=== PATIENT | female | born 1980 | race Caucasian/White ===

== ENCOUNTER 2017-02-23 19:48 | Emergency (ER) | payer MEDICAID ==
[~2017-02-23] VITALS: Ht 162.6 cm; Wt 84.5 kg
[2017-02-23 19:58] VITALS: Ht 162.6 cm; Wt 84.5 kg
[2017-02-23] MEDS ORDERED: HYDROCODONE/APAP (5/325) TAB PO STA (23:44)
[2017-02-23 23:57] LABS: URINE BLOOD (Dip) POC Trace-intact (NEGATIVE)
--- NOTE | 2017-02-24 00:28 | RADRPT ---
PROCEDURE: US Non-OB Pelvis. CLINICAL INDICATION: Left pelvic pain. TECHNIQUE: Multiple sonographic images of the pelvis were obtained utilizing a transabdominal tech nique. The images were reviewed on a PACS workstation. COMPARISON: None. FINDINGS: The uterus is visualized and measures 8.5 x 4.4 x 4.9 cm. The endometrial echo complex is normal and measures 5 mm. The right ovary measures 3.2 x 1.9 x 2.0 cm. The left ovary measures 3.3 x 2.1 x 2.4 cm. Blood flow is demonstrated to both ovaries. No adnexal masses are noted. There is no evidence of free fluid. IMPRESSION: 1. Unremarkable pelvic ultrasound. RPTAT: HTAR .Ronald Cruz MD, Date Time Electronically viewed and signed by .Ronald Cruz MD, on 02/24/2017 00:28 .R/
[2017-02-24 00:35] LABS: ADD UMIC YES; URINE BILIRUBIN (Dip) NEGATIVE (NEGATIVE); URINE BLOOD (Dip) TRACE (NEGATIVE); URINE COLOR LT. YELLOW (YELLOW); URINE GLUCOSE (Dip) NEGATIVE (NEGATIVE); URINE KETONES (Dip) NEGATIVE (NEGATIVE); URINE LEUKOCYTE ESTERASE (Dip) TRACE (NEGATIVE); URINE NITRITE (Dip) NEGATIVE (NEGATIVE); URINE TOTAL PROTEIN (Dip) NEGATIVE (NEGATIVE); URINE UROBILINOGEN (Dip) 0.2 E.U./dL (0.1-1.0)
[2017-02-24 00:51] LABS: BACTERIA,URINE RARE; SQUAMOUS EPITHELIAL CELL,UR FEW; URINE RBCS 0-2 /HPF (0)
--- NOTE | 2017-02-24 01:03 | ERD ---
ER Documentation Chief Complaint Date/Time DATE: 02/24/17 TIME: 01:01 Chief Complaint left pelvic pain, N/V, diarrhea HPI This pleasant 36-year-old female presents to emergency department today with left pelvic pain with nausea, vomiting, and diarrhea that started 3 days ago. Patient states vomiting and diarrhea has subsided. Continues to have left pelvic pain. Patient denies possibility of contaminated food. Reports irregular menstruation, last menstrual period 2 months ago. Patient denies dysuria, or hematuria. Patient denies any injury, denies any new exercise routine or activity. ROS All systems reviewed and are negative except as per history of present illness. Allergies Allergies: Coded Allergies: No Known Allergy (Verified Allergy, Unknown, 12/15/06) PMhx/Soc History of Surgery: No Anesthesia Reaction: No Hx Neurological Disorder: No Hx Respiratory Disorders: No Hx Cardiac Disorders: No Hx Psychiatric Problems: No Hx Miscellaneous Medical Probl: No Hx Alcohol Use: No Hx Substance Use: No Hx Tobacco Use: No Physical Exam Vitals Vital Signs Date Time Temp Pulse Resp B/P Pulse Ox O2 Delivery O2 Flow Rate FiO2 02/23/17 19:58 98.5 83 20 127/66 100 Vitals stable, nursing notes reviewed Physical Exam Const: No acute distress Head: Atraumatic Eyes: Normal Conjunctiva ENT: Normal External Ears, Nose and Mouth. Neck: Resp: Cardio: Regular rate and rhythm, no murmurs Abd: Obese abdomen, soft, negative Naranjo sign, negative epigastric pain, McBurney's point negative for tenderness. Patient is hypersensitive to touch on left pelvis/groin Skin: No petechiae or rashes Back: No midline or flank tenderness Ext: Neur: Awake and alert Psych: Normal Mood and Affect Results 24 hrs Laboratory Tests Test 02/23/17 23:54 02/23/17 23:58 Urine Color LT. YELLOW Urine Clarity CLEAR Urine pH 5.5 Urine Specific [place] 1.025 Urine Ketones NEGATIVE Urine Nitrite NEGATIVE Urine Bilirubin NEGATIVE Urine Urobilinogen 0.2 E.U./dL Urine Leukocyte Esterase TRACE Urine Microscopic RBC 0-2/HPF Urine Microscopic WBC 0-2/HPF Urine Squamous Epithelial Cells FEW Urine Bacteria RARE Urine Hemoglobin TRACE Urine Glucose NEGATIVE% Urine Total Protein NEGATIVE Bedside Urine pH (LAB) 5.5 Bedside Urine Protein (LAB) Negative Bedside Urine Glucose (UA) Negative Bedside Urine Ketones (LAB) Negative Bedside Urine Blood Trace-intact Bedside Urine Nitrite (LAB) Negative Bedside Urine Leukocyte Esterase (L Negative Current Medications Medications (Trade) Dose Ordered Sig/Emilie Route PRN Reason Start Time Stop Time Status Last Admin Dose Admin Acetaminophen/ Hydrocodone Bitart ([place] (5/325)) 1 tab ONCE STAT PO 02/23/17 23:44 02/23/17 23:47 DC 02/24/17 00:08 Procedures/MDM PROCEDURE: US Non-OB Pelvis. CLINICAL INDICATION: Left pelvic pain. TECHNIQUE: Multiple sonographic images of the pelvis were obtained utilizing a transabdominal technique. The images were reviewed on a PACS workstation. COMPARISON: None. FINDINGS: The uterus is visualized and measures 8.5 x 4.4 x 4.9 cm. The endometrial echo complex is normal and measures 5 mm. The right ovary measures 3.2 x 1.9 x 2.0 cm. The left ovary measures 3.3 x 2.1 x 2.4 cm. Blood flow is demonstrated to both ovaries. No adnexal masses are noted. There is no evidence of free fluid. IMPRESSION: 1. Unremarkable pelvic ultrasound. .Ronald Cruz MD, MD Date Time Electronically viewed and signed by .Ronald Cruz MD, MD on 02/24/2017 00:28 This pleasant 36-year-old female presents to emergency department today with left pelvic pain, nausea, vomiting, diarrhea. Nausea, vomiting diarrhea has subsided. Pelvic pain continues. Differential diagnosis includes but not limited to ectopic , urinary tract infection, strained abdominal muscle , hernia, gastritis, gastroenteritis. Patient treated for pain with [place]. Urinalysis negative for evidence of infection, U hCG negative for evidence of , ultrasound findings uterus is visualized measures 8.54.44.9 cm, the endometrial echo complex is normal and measures 5 mm. Right ovary measures 3.2 x 1.9 x 2.0 cm left ovary measures 3.3 x 2.1 x 2.4 cm blood flow is demonstrated to both ovaries no adnexal masses are noted there is no evidence of free fluid. Unremarkable pelvic ultrasound documented. Nurse practitioner discussed findings with patient and treatment plan. Patient will be discharged home with diagnosis of a pulled abdominal muscle secondary to gastritis. Treated with ibuprofen and Valium. Strict return to emergency department precautions return for fever, worsening of symptoms, nausea vomiting, or pain not responding to treatment. I feel patient can be monitored by primary care physician in outpatient setting. Increase fluids, increase rest, take medications as prescribed. I feel the patient is stable for discharge at this time. I have discussed results, examination findings, the treatment plan with the patient and family present prior to discharge. Indications for emergent reevaluation, side effects of medication were also discussed. All questions were answered. Patient verbalizes understanding and agrees with plan of care. Departure Diagnosis: Primary Impression: Abdominal muscle strain Encounter type: initial encounter Qualified Code: S39.011A - Abdominal muscle strain, initial encounter Additional Impression: Gastritis Gastritis type: unspecified gastritis Chronicity: acute Gastritis bleeding : without bleeding Qualified Code: K29.00 - Acute gastritis without hemorrhage, unspecified gastritis type Condition: Good Patient Instructions: Gastritis (Adult), Muscle Strain, Abdomen Referrals: [facility] Additional Instructions: Thank you for for coming to [facility] for your care today. Please ask your nurse or provider if you have questions about your care today and do not leave until all your questions have been answered. Please use any medications given as directed and follow-up with your doctor (or the doctor you were referred to) in the next 2-3 days. If you do not have a primary care doctor you may follow up at the [facility] [place] (listed below). You may also use motrin and tylenol as needed for fever and/or pain unless instructed otherwise by your provider or nurse. Indications for more urgent follow-up have been discussed, but you may return to the Emergency Department at ANY time for any worrisome or worsening symptoms. If you have abdominal pain, please know that no test or exam you received is perfect and you should follow up within 8 hours for continued pain. If you had any imaging studies today, such as an X-Ray or CT Scan, these studies will be reviewed later by a radiologist. You will be called if there are important findings that were not identified today, so make sure the contact information you provided at registration is correct. If you received any narcotic pain control medicine today, such as Vicodin, Morphine or Dilaudid, your coordination and judgment may be affected for a number of hours. Please do not drive or operate heavy machinery, and you may want someone to assist you at home. If you were given a prescription for narcotic medication, be aware that it is very addictive- use sparingly and only if necessary. HENNA LOPEZ Feb 24, 2017 01:03
[2017-02-24] MEDS ORDERED: DIAZ-90 PO (01:51)
[2017-02-24] MEDS ORDERED: IBUP-1542 PO (01:51)
[2017-02-24 02:05] VITALS: BP 99/59; PULSE 74; RESP 18; TEMP 97.5
== END 2017-02-24 02:05 | disposition home or self-care (01) ==
LOC: FTE 19:48
DX: S39.011A Strain of muscle, fascia and tendon of abdomen, initial encounter (principal); K29.00 Acute gastritis without bleeding; R10.2 Pelvic and perineal pain; X58.XXXA Exposure to other specified factors, initial encounter; Y92.9 Unspecified place or not applicable
CPT/HCPCS: 76856; 81001; Z7610; 81003

== ENCOUNTER 2018-05-26 21:41 | Emergency (ER) | END 2018-05-26 23:44 | disposition home or self-care (01) ==

== ENCOUNTER 2018-09-17 22:21 | Emergency (ER) | END 2018-09-18 02:54 | disposition home or self-care (01) ==

== ENCOUNTER 2019-01-30 23:45 | Emergency (ER) | payer MEDICAID ==
[~2019-01-30] VITALS: Ht 149.9 cm; Wt 83.4 kg
[~2019-01-30 23:45] MED LIST: AMOX1TAB10 PO; DIAZ5TAB PO; GUAI5SYR2 PO; IBUP-1542 PO; ONDA4TAB14 PO
[2019-01-30 23:50] VITALS: BP 113/57; PULSE 76; Ht 149.9 cm; Wt 83.4 kg
--- NOTE | 2019-01-31 03:20 | ERD ---
ER Documentation Chief Complaint Chief Complaint L PELVIC PAIN X'S 2 WEEKS HPI 38-year-old female, previously healthy, presents to the emergency department, complaining of 2 weeks with intermittent episodes of left lower pelvic pain. The patient denies dysuria, no vaginal discharge, no fever, no chills. ROS All systems reviewed and are negative except as per history of present illness. Medications Home Meds Active Scripts Ondansetron (Ondansetron Odt) 4 Mg Tab.rapdis, 4 MG PO Q6H PRN for NAUSEA AND/OR VOMITING, #20 TAB Prov:MARV FUENTES MD 09/18/18 Ibuprofen* (Motrin*) 600 Mg Tab, 600 MG PO Q6, #30 TAB Prov:JOHN,HENNA 05/26/18 Guaifenesin-Dextromethorphan* (Robitussin* DM) 100MG/10MG/5ML Syrup, 10 ML PO Q4 H PRN for COUGH for 3 Days, #100 ML Prov:JOHN,HNENA 05/26/18 Amoxicillin/Potassium Clav (Amox-Clav 875-125 mg Tablet) 875-125 mg Tab, 1 TAB PO BID for 10 Days, #20 TAB Prov:JOHN,HENNA 05/26/18 Diazepam* (Valium*) 5 Mg Tablet, 5 MG PO Q8, #10 TAB Prov:JOHN,HENNA 02/24/17 Ibuprofen* (Motrin*) 600 Mg Tab, 600 MG PO Q6, #30 TAB Prov:JOHN,HENNA 02/24/17 Allergies Allergies: Coded Allergies: No Known Allergy (Verified Allergy, Unknown, 12/15/06) PMhx/Soc Medical and Surgical Hx: pt denies Medical Hx, pt denies Surgical Hx History of Surgery: No Anesthesia Reaction: No Hx Neurological Disorder: No Hx Respiratory Disorders: No Hx Cardiac Disorders: No Hx Psychiatric Problems: No Hx Miscellaneous Medical Probl: No Hx Alcohol Use: Yes Hx Substance Use: No Hx Tobacco Use: No Smoking Status: Never smoker Physical Exam Vitals Vital Signs Date Temp Pulse Resp B/P (MAP) Pulse Ox O2 O2 Flow FiO2 Time Delivery Rate 01/30/19 97.7 76 18 113/57 98 23:50 (75) Physical Exam Const: No acute distress Head: Atraumatic Eyes: Normal Conjunctiva ENT: Normal External Ears, Nose and Mouth. Neck: Full range of motion. No meningismus. Resp: Clear to auscultation bilaterally Cardio: Regular rate and rhythm, no murmurs Abd: Soft, non tender, non distended. Normal bowel sounds Skin: No petechiae or rashes Back: No midline or flank tenderness Ext: No cyanosis, or edema Neur: Awake and alert Psych: Normal Mood and Affect Results 24 hrs Laboratory Tests Test 01/31/19 03:30 Urine Color YELLOW Urine Clarity SLIGHTLY CLOUDY Urine pH 5.0 Urine Specific [place] 1.019 Urine Ketones NEGATIVE mg/dL Urine Nitrite NEGATIVE mg/dL Urine Bilirubin NEGATIVE mg/dL Urine Urobilinogen NEGATIVE mg/dL Urine Leukocyte Esterase 3+ Berta/ul Urine Microscopic RBC 5 /HPF Urine Microscopic WBC 5 /HPF Urine Squamous Epithelial Cells FEW /HPF Urine Bacteria FEW /HPF Urine Hemoglobin NEGATIVE mg/dL Urine Glucose NEGATIVE mg/dL Urine Total Protein NEGATIVE mg/dl Urine Test NEGATIVE Departure Diagnosis: Primary Impression: UTI (urinary tract infection) Condition: Stable Additional Instructions: Thank you very much for allowing us to participate in your care. Your health and safety is our top priority at [facility]. Call your primary care doctor TOMORROW for an appointment during the next 2-4 days and bring all the information and medications prescribed. Have prescriptions filled and follow precisely the directions on the label. If the symptoms get worse and your provider is unavailable, return to the Emergency Department immediately. MARINA LYON MD Jan 31, 2019 03:20
[2019-01-31] MEDS ORDERED: CIPROFLOXACIN 500 MG TAB PO ONE (04:30)
[2019-01-31] MEDS ORDERED: IBUP-1561 PO (04:44)
[2019-01-31] MEDS ORDERED: CIPR-193 PO (04:44)
[2019-01-31 04:55] VITALS: RESP 18
== END 2019-01-31 04:56 | disposition home or self-care (01) ==
LOC: FTE 23:45
DX: N39.0 Urinary tract infection, site not specified (principal)
CPT/HCPCS: 81001; 84703; Z7502; Z7610; 99283